=== PATIENT | male | born 1970 | race Caucasian/White ===

== ENCOUNTER 2020-11-25 06:07 | Day surgery (SDC) | payer OTHER ==
[2020-11-22 18:49] VITALS: BMI 23.7
[2020-11-25] MEDS ORDERED: DEXAMETHASONE SOD PHOSPHATE 10 MG/1 ML VIAL ONE (07:07)
[2020-11-25] MEDS ORDERED: ROPIVACAINE HCL 0.5% 30ML VIAL ONE (07:07)
[2020-11-25] MEDS ORDERED: MIDAZOLAM HCL 2 MG/2 ML SINGLE DOSE VIAL ONE (07:07)
[2020-11-25] MEDS ORDERED: EPINEPHrine 1:1,000 1 MG/1 ML - 30ML VIAL (INJECTION) ONE (07:23)
[2020-11-25] MEDS ORDERED: ONDANSETRON 4 MG/2 ML VIAL IVPUSH PRN (07:46)
[2020-11-25] MEDS ORDERED: oxyCODONE HCL 5 MG TABLET PO PRN (07:46)
[2020-11-25] MEDS ORDERED: LACTATED RINGERS SOLUTION 1,000 ML IV SCH (08:00)
[2020-11-25 12:23] VITALS: BP 118/79; PULSE 62; TEMP 97.8
== END 2020-11-25 12:23 | disposition home or self-care (01) ==
LOC: FASU 06:07
PROVIDERS: ATTEND Orthopaedic Surgery Sports Medicine
PROC: 0RBJ4ZZ Excision of Right Shoulder Joint, Percutaneous Endoscopic Approach (ICD-10-PCS; 2020-11-25)
PROC: 0RNJXZZ Release Right Shoulder Joint, External Approach (ICD-10-PCS; 2020-11-25)
PROC: 0LQ14ZZ Repair Right Shoulder Tendon, Percutaneous Endoscopic Approach (ICD-10-PCS; principal; 2020-11-25 08:28)
PROC: 0RNJ4ZZ Release Right Shoulder Joint, Percutaneous Endoscopic Approach (ICD-10-PCS; 2020-11-25 08:28)
DX: M75.111 Incomplete rotator cuff tear or rupture of right shoulder, not specified as traumatic (principal); M75.01 Adhesive capsulitis of right shoulder; M75.41 Impingement syndrome of right shoulder; M65.811 Other synovitis and tenosynovitis, right shoulder
CPT/HCPCS: 94760; J1100